=== PATIENT | male | born 1995 ===

== ENCOUNTER → 2025-05-18 02:20 | Outpatient (CLI) | payer MEDICAID, SELFPAY ==
--- NOTE | 2025-05-18 08:00 | DI.MRI_ITS ---
Exam(s) MR UPPER EXTREMITY RT WO EXAM: MR UPPER EXTREMITY RT WO CLINICAL HISTORY: PRE SURGICAL PLANNING, INJURY,flexor tendon laceration,open wound,s56.129a. TECHNIQUE: Multiplanar multisequence MRI was performed. COMPARISON: None. FINDINGS: BONES: There is no fracture. Evaluation is limited due to artifact. Question of marrow edema in the 4th and 5th metacarpal heads as well as bases of the 3rd through 5th proximal phalanges versus artifact. JOINTS: No joint effusions. TENDONS: Flexors: The both the superficial and profundus components of the flexor digitorum tendons to the 5th finger are thickened in have a wavy contour proximally at the level of the metacarpals. There is extreme thinning and disruption of the tendons at the level of the proximal and middle phalanges consistent with severe partial to complete tear. Extensors: Unremarkable. SOFT TISSUES: Fluid surrounding the flexor tendons of the 5th finger at as well as within adjacent musculature. IMPRESSION: Severe partial to complete tear of the extensor tendons to the 5th finger. The preliminary [facility] report was reviewed. DATA REPOSITORY: Exam is limited by motion and lack of comparison films.
--- NOTE | 2025-05-18 18:56 | DI.[facility]_ITS ---
PROCEDURE INFORMATION: Exam: MR Right Upper Extremity Other Than Joint Without Contrast; Hand Exam date and time: 05/18/2025 3:11 PM Age: 29 years old Clinical indication: Injury or trauma; Other: Pre surgical planning, injury, flexor tendon laceration, open wound TECHNIQUE: Imaging protocol: MR of the right upper extremity without contrast. Exam focused on the hand. COMPARISON: No relevant prior studies available. FINDINGS: Bones/joints: Osseous edema is noted in the middle phalanx of the 5th digit and to a lesser extent in the proximal and distal phalanges of the 5th digit. Additionally, osseous edema is seen at the head of the 4th and 5th phalanges and the base of the 4th and 3rd proximal phalanges. No joint effusion. Collateral ligaments of digits: The collateral ligaments of the proximal and distal interphalangeal joints appears slightly irregular. Flexor compartment tendons: There is complete disruption of the distal aspect of the flexor tendon of the 5th digit with edema and fluid noted in this region. The tear is seen predominantly in the region of the proximal interphalangeal joint, however edema is noted within the tendon more proximally and distally. Extensor compartment tendons: The extensor tendon of the 5th digit is not well seen and may also be torn. Soft tissues: Subcutaneous edema/fluid noted predominantly at the palmar aspect of the 5th digit. IMPRESSION: 1. Complete tear of the flexor tendon of the 5th digit and possible tear of the extensor tendon of the 5th digit. 2. Multifocal edema seen in a few osseous structures as described. Dictated and Authenticated by: Nika Chisholm MD. Orderin Andre Deutsch MD
== END ==
LOC: DI 02:20
PROVIDERS: PCP Family Medicine; Visit Provider Student in an Organized Health Care Education/Training Program
DX: S56.121A Laceration of flexor muscle, fascia and tendon of right index finger at forearm level, initial encounter (principal); Z01.818 Encounter for other preprocedural examination; X58.XXXA Exposure to other specified factors, initial encounter
CPT/HCPCS: 73218